=== PATIENT | male | born 1970 ===

== ENCOUNTER 2022-02-07 11:15 | Inpatient (IN) | payer OTHER ==
[~2022-02-07] VITALS: Ht 177.8 cm; Wt 110.7 kg
[2022-02-07] MEDS ORDERED: LOSARTAN-HCTZ1 EACH PO (12:24)
== END 2022-02-15 15:30 | disposition home or self-care (01) | DRG 330 ==
LOC: SURG 02-12 07:00 → O/R 02-12 08:49 → SURG 02-12 11:15 → SURH 02-12 16:41
PROVIDERS: ADMIT Surgery; ATTEND Surgery
PROC: 07BB4ZZ Excision of Mesenteric Lymphatic, Percutaneous Endoscopic Approach (ICD-10-PCS; 2022-02-12)
PROC: 0DTF4ZZ Resection of Right Large Intestine, Percutaneous Endoscopic Approach (ICD-10-PCS; principal; 2022-02-12 07:00)
DX: C18.2 Malignant neoplasm of ascending colon (principal); K76.6 Portal hypertension; Z20.822 Contact with and (suspected) exposure to COVID-19; K74.69 Other cirrhosis of liver; R59.0 Localized enlarged lymph nodes; E66.8 Other obesity; I11.9 Hypertensive heart disease without heart failure

== ENCOUNTER 2022-03-21 05:45 | Day surgery (SDC) | payer OTHER ==
[~2022-03-21 05:45] MED LIST: LOSARTAN-HCTZ1 EACH PO
[2022-03-21] MEDS ORDERED: ULTRAM50 MG PO (13:20)
== END 2022-03-21 16:10 | disposition home or self-care (01) ==
LOC: CIR.AMB 05:45
PROVIDERS: ATTEND Surgery
DX: C18.2 Malignant neoplasm of ascending colon (principal); Z20.822 Contact with and (suspected) exposure to COVID-19; Z91.013 Allergy to seafood; Z88.6 Allergy status to analgesic agent; I10 Essential (primary) hypertension; K74.60 Unspecified cirrhosis of liver